=== PATIENT | male | born 1980 | race American Indian/Alaskan Native ===

== ENCOUNTER 2019-03-12 08:47 | Emergency (ER) | payer OTHER ==
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
[2019-03-12] MEDS ORDERED: traMADol 50 MG TAB PO ONE (10:56)
[2019-03-12] MEDS ORDERED: traMADol 50 MG TAB ONE (10:57)
[2019-03-12 11:16] VITALS: BP 138/62
== END 2019-03-12 11:14 | disposition home or self-care (01) ==
LOC: ED 08:47
DX: S02.622A Fracture of subcondylar process of left mandible, initial encounter for closed fracture (principal); F17.200 Nicotine dependence, unspecified, uncomplicated; Y04.0XXA Assault by unarmed brawl or fight, initial encounter; Y93.89 Activity, other specified; Y92.89 Other specified places as the place of occurrence of the external cause; Y99.8 Other external cause status
CPT/HCPCS: 70450; 70486